=== PATIENT | male | born 1995 | race Caucasian/White ===

== ENCOUNTER 2022-10-16 18:06 | Emergency (ER) | payer OTHER ==
[~2022-10-16] VITALS: Ht 193 cm; Wt 117.5 kg
[~2022-10-16 18:06] MED LIST: CLONIDINE HCL0.1 MG PO; NORCO 5-325 TA1 EACH PO; NORCO 7.5-3251 EACH PO; OMEPRAZOLE20 MG PO; TRAMADOL HCL50 MG PO; VIVANCE
[2022-10-16] MEDS ORDERED: DOXYCYCLINE HY100 MG PO (20:52)
[2022-10-16 21:13] VITALS: BP 165/89
== END 2022-10-16 21:13 | disposition home or self-care (01) ==
LOC: ED 18:06
DX: L02.415 Cutaneous abscess of right lower limb (principal); F17.200 Nicotine dependence, unspecified, uncomplicated
CPT/HCPCS: 99282; A9270